=== PATIENT | male | born 1995 | race American Indian/Alaskan Native ===

== ENCOUNTER 2019-06-30 08:06 | Emergency (ER) | payer SELFPAY ==
[2019-06-30 08:48] VITALS: BP 129/71
--- NOTE | 2019-06-30 09:57 | Emergency Department Report ---
Chief Complaint: Urogenital-Male Stated Complaint: UTI Time Seen by Provider: 06/30/19 09:42 - HPI History of Present Illness: Mr. Salamanca is a healthy 24-year-old who presents with burning at the tip of his penis during erection. No discharge. No dysuria. No trauma. Considering the likely diagnosis of urethritis, I suggested treatment at local urgent care center. In my impression, Mr. Muriel Combs does not have a life or limb threatening emergent medical condition which needs further treatment at this time. He is discharged after completion of medical screening exam. - Exam Vital Signs: Vital Signs 06/30/19 08:46 Temperature 97.9 F Pulse Rate 86 Respiratory 18 Rate Blood Pressure 129/71 O2 Sat by Pulse 98 Oximetry MSE screening note: Focused history and physical exam performed. Due to findings the following was ordered: ED Disposition for MSE Clinical Impression: Urethritis Disposition: Z- MED SCREENING EXAM-LEFT Condition: Stable
== END 2019-06-30 10:00 | disposition left against medical advice (07) ==
LOC: ED 08:06
DX: N34.2 Other urethritis (principal)
CPT/HCPCS: 99281